=== PATIENT | female | born 1935 | race Hispanic/Latino ===

== ENCOUNTER 2017-12-25 09:21 | Outpatient (CLI) | payer MEDICARE, BC ==
--- NOTE | 2017-12-25 13:01 | MRI ---
MRI CERVICAL SPINE NONCONTRAST: HISTORY: Neck pain with right arm radiculopathy. FINDINGS: Vertebral body height and alignment are maintained. Bone marrow signal is within normal limits. C2-C3: Mild osteophytosis. The central canal and neural foramina are patent. C3-C4: Posterior osteophyte/disk complex effaces the ventral aspect of the thecal sac and spinal cor d. No abnormal signal within the cord. Uncovertebral and facet hypertrophy with mild to moderate ri ght foraminal stenosis. C4-C5: Mild posterior osteophyte/disk complex. Circumferential degenerative changes with mild to mo derate central canal stenosis. The neural foramina are patent. C5-C6: Posterior osteophyte/disk complex and circumferential degenerative changes with severe stenos is of the central canal. Severe right and moderate left foraminal stenosis. C6-C7: Posterior osteophyte/disk complex with circumferential degenerative changes and moderate sten osis of the central canal. Severe bilateral foraminal stenoses. No abnormal signal within the spina l cord. C7-T1: Mild osteophytosis. The central canal and neural foramina are patent. 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 No evidence of myelomala neida. POS: [facility]
== END 2017-12-25 09:22 | disposition home or self-care (01) ==
LOC: MRI 09:21
PROVIDERS: ATTEND Orthopaedic Surgery
DX: M47.22 Other spondylosis with radiculopathy, cervical region (principal); M48.02 Spinal stenosis, cervical region; M99.81 Other biomechanical lesions of cervical region
CPT/HCPCS: 72141

== ENCOUNTER 2018-12-25 13:32 | Outpatient (CLI) | payer MEDICARE, BC ==
--- NOTE | 2018-12-25 14:59 | MRI ---
MRI OF THE LEFT KNEE: Date: 12/25/18 PROVIDED CLINICAL HISTORY: Left knee pain. FINDINGS: The anterior cruciate ligament, posterior cruciate ligament, medial collateral ligament, and lateral collateral ligamentous complex demonstrate an intact MR appearance, as does the extensor mechanism. 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 There is a nondisplaced tear involving the posterior horn of the lateral meniscus which is primarily peripheral vertical longitudinal. The medial meniscus demonstrat es no evidence for tear. No focal articular cartilage defect is apparent. There is a small knee joint effusion. No focal concerning regional marrow or muscular signal abnormal ity is evident. IMPRESSION: 1. 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 2. Small knee joint effusion. POS: OFF
== END 2018-12-25 13:33 | disposition home or self-care (01) ==
LOC: BICMRI 13:32
PROVIDERS: ATTEND Orthopaedic Surgery
DX: S83.282A Other tear of lateral meniscus, current injury, left knee, initial encounter (principal); M25.462 Effusion, left knee

== ENCOUNTER 2019-02-06 05:42 | Day surgery (SDC) | payer MEDICARE, BC ==
[2019-02-06] MEDS ORDERED: PROPOFOL 20 ML ONE (06:21)
[2019-02-06 06:39] LABS: #Eosinphils 0.2 thou/uL (0.0-0.7); #Lymphocytes 2.2 thou/uL (1.20-3.40); #Monocytes 0.8 thou/uL (0.11-0.59); #Neutrophils 5.2 thou/uL (1.40-6.50); %Basophils 0.5 % (0.0-1.0); %Eosinophils 2.8 % (0.0-10.0); %Lymphocytes 26.1 % (21.0-51.0); %Monocytes 9.6 % (0.0-10.0); Hemoglobin 11.1 g/dL (12.0-16.0); Mean Corpuscular HGB CONC 32.1 g/dL (32.0-36.0); Mean Corpuscular Hemoglobin 25.8 pg (27.0-31.0); Mean Corpuscular Volume 80.6 fL (78.0-98.0); Mean Platelet Volume 8.1 fL (7.4-10.4); Platelet Count 234 thou/uL (130-400); RBC Distribution Width 12.3 % (11.5-14.5); White Blood Cell (WBC) Count 8.6 thou/uL (4.8-10.8)
[2019-02-06] MEDS ORDERED: Bupivacaine HCl 0.5%/Epinephrine 1:200,000/PF 30 ml Vial ONE ×2 (06:47→10:11)
[2019-02-06 06:55] LABS: PTT 29.2 SEC (22.9-36.1); Prothrombin Time 13.1 SEC (12.0-14.7)
[2019-02-06 06:59] LABS: Anion Gap 10 mmol/L (10-20); BUN (Urea Nitrogen) 20 mg/dL (9.8-20.1); Calc. Creatinine Clearance 40 mL/min (70-130); Calcium 9.6 mg/dL (7.8-10.44); Carbon Dioxide 28 mmol/L (23-31); Chloride 102 mmol/L (98-107); Estimated GFR-MDRD 43; Glucose 153 mg/dL (83-110); Potassium 4.6 mmol/L (3.5-5.1); Sodium 135 mmol/L (136-145)
[2019-02-06] MEDS ORDERED: Lidocaine 2% w/Epinephrine 1:200K 20 ML VIAL ONE (10:11)
[2019-02-06] MEDS ORDERED: Ondansetron PF 4 MG/2 ML Vial ONE (10:46)
[2019-02-06] MEDS ORDERED: PROPOFOL 200 MG/20 ML VIAL ONE (10:46)
[2019-02-06] MEDS ORDERED: Dexamethasone 20 MG/5 ML VIAL ONE (10:46)
--- NOTE | 2019-02-06 12:56 | OP ---
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 PROCEDURE PERFORMED: Arthroscopic partial medial and lateral meniscectomy. ANESTHESIA: General. ESTIMATED BLOOD LOSS: Minimal. SPECIMENS: None. DRAINS: None. COMPLICATIONS: None. DESCRIPTION OF PROCEDURE: The patient was taken to the operating room, where general anesthesia was induced. Left leg was prepped and draped in th usual sterile fashion. Scope was placed in the lateral portal and probe was placed in the medial portal. The patellofemoral joint was free of disease. 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 Medial meniscus was debrided using basket forceps and smoothed using a 4.0 full-radius resector. ACL was intact. Lateral compartment had discoid lateral meniscus, which was torn. I debrided the discoid lateral meniscus back to a smooth rim, but I did leave a generous portion of lateral meniscus behind. After removing the tear, there was no arthritis in the lateral compartment. The knee was irrigated and drained. Sterile dressing was applied. Job ID: [id number]
--- NOTE | 2019-02-07 09:58 | EKG ---
Test Reason : PREOP Blood Pressure : / mmHG Vent. Rate : 061 BPM Atrial Rate : 061 BPM P-R Int : 146 ms QRS Dur : 082 ms QT Int : 426 ms P-R-T Axes : 060 005 025 degrees QTc Int : 428 ms Normal sinus rhythm Normal ECG When compared with ECG of 12-AUG-2009 07:18, No significant change was found Confirmed by DR. Jeanna LOCO ([id number]) on 02/07/2019 9:58:12 AM Referred By: VIDAL Confirmed By:DR. Jeanna LOCO
== END 2019-02-06 11:55 | disposition home or self-care (01) ==
LOC: SDC 05:42
PROVIDERS: ATTEND Orthopaedic Surgery
PROC: 0SBD4ZZ Excision of Left Knee Joint, Percutaneous Endoscopic Approach (ICD-10-PCS; principal; 2019-02-06)
DX: S83.282A Other tear of lateral meniscus, current injury, left knee, initial encounter (principal); S83.242A Other tear of medial meniscus, current injury, left knee, initial encounter; I12.9 Hypertensive chronic kidney disease with stage 1 through stage 4 chronic kidney disease, or unspecified chronic kidney disease; E11.22 Type 2 diabetes mellitus with diabetic chronic kidney disease; N18.9 Chronic kidney disease, unspecified; I25.10 Atherosclerotic heart disease of native coronary artery without angina pectoris; E03.9 Hypothyroidism, unspecified; E78.5 Hyperlipidemia, unspecified; E55.9 Vitamin D deficiency, unspecified; E53.8 Deficiency of other specified B group vitamins; E66.9 Obesity, unspecified; Z68.30 Body mass index [BMI] 30.0-30.9, adult; Z79.82 Long term (current) use of aspirin; Z79.84 Long term (current) use of oral hypoglycemic drugs; Z79.899 Other long term (current) drug therapy; Z88.8 Allergy status to other drugs, medicaments and biological substances; X50.1XXA Overexertion from prolonged static or awkward postures, initial encounter
CPT/HCPCS: 80048; 85025; 85610; 85730; 93005; 93010; J0670; J0690; J1100; J2405; J2704